=== PATIENT | female | born 2000 | race American Indian/Alaskan Native ===

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

== ENCOUNTER 2022-01-10 10:46 | Emergency (ER) | payer SELFPAY ==
[2022-01-10] MEDS ORDERED: ACETAMINOPHEN W/CODEINE 300-30 MG TAB PO ONE (13:13)
[2022-01-10] MEDS ORDERED: predniSONE 20 MG TAB PO ONE (13:13)
[2022-01-10 16:48] LABS: Mucus,Urine FEW /HPF
[2022-01-10 16:56] LABS: Bilirubin,Urine Negative (Negative); Color,Urine Straw (Yellow)
[2022-01-10 16:57] LABS: Blood,Urine Negative (Negative); Protein,Urine <15 mg/dL mg/dL (Negative)
[2022-01-10 17:14] LABS: HCG Qualitative,Urine Negative (Negative)
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
[2022-01-10 18:08] VITALS: BP 118/62
== END 2022-01-10 18:06 | disposition home or self-care (01) ==
LOC: ED 10:46
DX: L02.412 Cutaneous abscess of left axilla (principal); R51.9 Headache, unspecified; M54.50 Low back pain, unspecified
CPT/HCPCS: 81001; 81025; 99283